=== PATIENT | male | born 1975 | race Caucasian/White ===

== ENCOUNTER 2020-08-01 13:38 | Emergency (ER) | payer OTHER, SELFPAY ==
--- NOTE | ~2020-08-01 | CT_ITS ---
EXAMINATION: CT abdomen pelvis w con DATE: 08/01/2020 16:44 INDICATION: Left lower quadrant abdominal pain. TECHNIQUE: Computed tomography (CT) of the abdomen and pelvis was performed with 100 mL Omnipaque 350 intravenous contrast. Automated exposure control and iterative reconstruction technique were employe d. The dose-length product was 476.58 mGy-cm. COMPARISON: None. FINDINGS: The visualized portions of the lung bases demonstrate mild atelectasis. A calcified right l savanna nodule is consistent with old granulomatous disease. No pleural effusion. The heart size is noreen l. No pericardial effusion. The liver, gallbladder, spleen, pancreas, and adrenal glands are normal. There are cysts in the kidneys measuring up to 16 mm on the left. There is a large volume of stool in the colon. There are no dilated loops of bowel. The appendix is normal. There are no pathologically enlarged lymph nodes. There is no free intraperitoneal fluid. There is lumbar dextroscoliosis and sev ere spondylosis. IMPRESSION: 1. Large volume of stool in the colon. Reviewed, dictated and finalized at location A.
--- NOTE | ~2020-08-01 | US_ITS ---
EXAMINATION: US venous doppler LE RT DATE: 08/01/2020 15:38 INDICATION: Right lower limb swelling. TECHNIQUE: Grayscale ultrasound images without and with compression and Doppler ultrasound images of the right lower extremity veins were obtained. COMPARISON: None. FINDINGS: The visualized portions of right common femoral vein, profunda (deep) femoral vein, femoral vein, pop liteal vein, peroneal veins, posterior tibial veins, and greater saphenous vein outflow are patent. IMPRESSION: 1. No deep venous thrombosis. Reviewed, dictated and finalized at location A.
[2020-08-01 13:43] VITALS: BP 176/121; PULSE 105; RESP 14; TEMP 36.1; O2SAT 100
[2020-08-01 13:44] VITALS: BP 176/121; PULSE 105; RESP 17; TEMP 36.1; O2SAT 100
[2020-08-01 14:01] LABS: Basophils Absolute Auto 0.1 K/mm3 (0.0-0.1); Basophils Percent Auto 0.4 % (0.2-1.2); Eosinophils Percent Auto 0.3 % (0-4.4); Hematocrit 44.4 % (42.0-52.0); Hemoglobin 14.6 g/dL (14.0-18.0); Immature Granulocyte Absolute 0.05 K/mm3 (0.00-0.031); Immature Granulocyte Percent A 0.4 % (0-0.5); Lymphocytes Absolute Auto 1.95 K/mm3 (0.9-3.2); Lymphocytes Percent Auto 14.9 % (18.3-44.2); Mean Corpuscular HGB Conc 32.9 g/dl (32-36); Mean Corpuscular Hemoglobin 28.9 pg (26-34); Mean Corpuscular Volume 87.9 fl (80-100); Mean Platelet Volume 11.2 fl (7.4-10.4); Monocytes Absolute Auto 0.9 K/mm3 (0.1-0.6); Monocytes Percent Auto 6.7 % (2.6-8.5); Neutrophils Absolute Auto 10.1 K/mm3 (1.3-6.7); Neutrophils Percent Auto 77.3 % (45.5-73.1); Platelet Count Result 295 k/mm3 (150-375); Red Blood Count 5.05 M/mm3 (4.6-6.20); Red Cell Distribution Width 15.4 % (11.5-14.5); White Blood Count 13.1 K/mm3 (4.5-10.0)
[2020-08-01 14:11] LABS: Alanine Aminotransferase 29 U/L (4-50); Albumin Level 4.6 g/dL (3.5-5.1); Alkaline Phosphatase 69 U/L (38-126); Anion Gap 11 mmol/L (8-16); Aspartate Amino Transferase 33 U/L (17-59); Bilirubin,Total 0.4 mg/dL (0.2-1.3); Blood Urea Nitrogen 11 mg/dL (9-20); Carbon Dioxide 29 mmol/L (22-30); Chloride 101 mmol/L (98-107); Estimated CRCL calculation 104 ml/min; Estimated Glomerular Filt Rate > 60; Glucose 105 mg/dL (75-110); Lipase 63 U/L (23-300); Potassium 3.8 mmol/L (3.4-5.0); Sodium 141 mmol/L (137-145)
[2020-08-01 15:11] VITALS: BP 178/121; PULSE 82; RESP 14; O2SAT 99
--- NOTE | 2020-08-01 15:20 | ED.GENADULT ---
HPI - General Adult General Chief complaint: Abdominal Pain Stated complaint: Swollen abd Time Seen by Provider: 08/01/20 15:04 Source: patient Mode of arrival: ambulatory Limitations: no limitations History of Present Illness HPI narrative: Patient is a 44-year-old male who presents complaining of of left lower quadrant abdominal pain and right leg pain. He reports right lower extremity pain x3 days. Reports increased redness, warmth and tenderness over the past day. He reports increased swelling today. He denies chest pain or shortness of breath. Patient also reporting left lower quadrant abdominal pain. He states it's swelling . Patient reports tenderness with palpation to left abdomen, no visible deformity, mass or lesion noted at this time. He denies nausea, vomiting, diarrhea or other complaints at this time. Patient has no significant medical history. MD complaint: Abdominal pain, right lower extremity pain Related Data Allergies Allergy/AdvReac Type Severity Reaction Status Date / Time No Known Allergies Allergy Unverified 07/05/18 15:27 Review of Systems Review of Systems: Narrative: CONSTITUTIONAL: Denies fever, chills, or sweats. EYES: Denies visual changes, redness, or discharge. ENT: Denies rhinorrhea, congestion, sore throat, or otalgia. CARDIOVASCULAR: Denies chest pain, palpitations, or edema. RESPIRATORY: Denies cough or dyspnea. GASTROINTESTINAL: Reports abdominal pain, denies nausea, vomiting, or diarrhea. GENITOURINARY: Denies dysuria or hematuria. SKIN: Denies rash or itching. MUSCULOSKELETAL: Reports right lower extremity pain NEUROLOGIC: Denies headache, numbness, dizziness, or weakness. PSYCHIATRIC: Denies anxiety or depression. [facility] Social History Social History (Updated 08/01/20 @ 15:24 by DEION Diaz) Smoking status: Current every day smoker Tobacco type: cigarettes Alcohol intake: current Alcohol use details: Occasional Substance use: current Substance use type: marijuana and crack/cocaine Gender identity (if verbalized by the patient): Male Comments At the time of signature, I have reviewed and agree with nursing past medical, surgical, social, and family history unless otherwise noted. Please see nursing chart for further information. There is no relevant family history pertinent to the presenting complaint. Exam Narrative: Exam Narrative: GENERAL: Well-appearing, well-nourished, and in no acute distress. HEAD: Normocephalic, atraumatic. EYES: EOMI. No redness or drainage. Conjunctiva are normal. ENT: Mucous membranes pink and moist. CHEST: No respiratory distress. Clear to auscultation. HEART: Regular rate and rhythm. No murmur appreciated. Normal peripheral pulses. GI: Soft, nontender without rebound, or guarding. No distention. Bowel sounds normal in all quadrants. MUSCULOSKELETAL: No bony tenderness. EXTREMITIES: Normal range of motion. No edema. SKIN: Warm, erythema, edema and tenderness with palpation to RLE. NEURO: No focal deficits. Alert and oriented x3. Gait steady. PSYCH: Normal affect. No signs of depression or anxiety. Course Vital Signs Vital signs: Vital Signs Temperature 36.1 C L 08/01/20 13:43 Pulse Rate 105 H 08/01/20 13:43 Respiratory Rate 14 08/01/20 13:43 Blood Pressure 176/121 H 08/01/20 13:43 Pulse Oximetry 100 08/01/20 13:43 Temperature 36.1 C L 08/01/20 13:44 Pulse Rate 75 08/01/20 17:42 Respiratory Rate 15 08/01/20 17:42 Blood Pressure 170/121 H 08/01/20 17:42 Pulse Oximetry 99 08/01/20 17:42 Medical Decision Making MDM Narrative Medical decision making narrative: Patient CT is negative for acute processes, discussed with patient that he has a large amount of stool which could be causing his discomfort. Patient's venous ultrasound of right lower extremity is negative for DVT. Most likely cellulitis. Patient to be started on antibiotics at this time. Patient instructed on follo
[2020-08-01 15:24] LABS: Add Urine Microscopic? YES; Appearance Urine Clear (Clear); Bilirubin Urine Negative (Negative); Blood Urine Negative (Negative); Color Urine Yellow (Yellow); Glucose Urine UA Negative (Negative); Hyaline Casts Urine 15-19 /lpf; Ketones Urine Negative (Negative); Leukocyte Esterase Ur Negative LEU/UL (Negative); Mucus Urine Moderate /lpf; Nitrate Urine Negative (Negative); Protein Urine 1+ mg/dL (Negative); RBC Urine 0-2 /hpf (0-2); Specific Grav Ur 1.018 (1.001-1.035); Urobilinogen Urine Negative mg/dL (<2.0); WBC Urine 0-3 /hpf
[2020-08-01 16:21] VITALS: BP 154/111; PULSE 64; RESP 12; O2SAT 99
[2020-08-01 17:42] VITALS: BP 170/121; PULSE 75; RESP 15; O2SAT 99
[2020-08-01] MEDS: KETOROLAC 30 MG/ML VIAL (*BKC) IV PUSH (18:12)
== END 2020-08-01 18:26 | disposition home or self-care (01) ==
PROVIDERS: Emergency Medicine; Emergency Provider Nurse Practitioner
DX: K59.00 Constipation, unspecified (principal); L03.115 Cellulitis of right lower limb; F17.210 Nicotine dependence, cigarettes, uncomplicated
CPT/HCPCS: 36415; 74177; 80053; 81001; 83690; 85025; 93971; 96365; 96375; 99284; J0690; J1885; Q9967

== ENCOUNTER 2020-11-25 09:39 | Emergency (ER) | payer OTHER, SELFPAY ==
[2020-11-25] VITALS (16 sets, daily range): BP systolic 177–186; BP diastolic 108–118; PULSE 52–79; RESP 12–19; TEMP 36.3; O2SAT 97–100
--- NOTE | 2020-11-25 11:01 | PC.NURSE ---
Report given to IAN Glez at this time. She has assumed pt care.
[2020-11-25 11:41] LABS: Basophils Absolute Auto 0.1 K/mm3 (0.0-0.1); Basophils Percent Auto 0.5 % (0.2-1.2); Eosinophils Absolute Auto 0.1 K/mm3 (0-0.3); Eosinophils Percent Auto 1.2 % (0-4.4); Hematocrit 38.9 % (42.0-52.0); Hemoglobin 12.9 g/dL (14.0-18.0); Immature Granulocyte Absolute 0.03 K/mm3 (0.00-0.031); Immature Granulocyte Percent A 0.3 % (0-0.5); Lymphocytes Absolute Auto 1.99 K/mm3 (0.9-3.2); Lymphocytes Percent Auto 19.7 % (18.3-44.2); Mean Corpuscular HGB Conc 33.2 g/dl (32-36); Mean Corpuscular Hemoglobin 30.3 pg (26-34); Mean Corpuscular Volume 91.3 fl (80-100); Mean Platelet Volume 11.3 fl (7.4-10.4); Monocytes Absolute Auto 0.9 K/mm3 (0.1-0.6); Monocytes Percent Auto 8.4 % (2.6-8.5); Neutrophils Absolute Auto 7.1 K/mm3 (1.3-6.7); Neutrophils Percent Auto 69.9 % (45.5-73.1); Platelet Count Result 226 k/mm3 (150-375); Red Blood Count 4.26 M/mm3 (4.6-6.20); White Blood Count 10.1 K/mm3 (4.5-10.0)
[2020-11-25 11:49] LABS: Anion Gap 8 mmol/L (8-16); Blood Urea Nitrogen 15 mg/dL (9-20); Calcium 8.9 mg/dL (8.4-10.2); Carbon Dioxide 29 mmol/L (22-30); Chloride 103 mmol/L (98-107); Estimated CRCL calculation 118 ml/min; Estimated Glomerular Filt Rate > 60; Glucose 103 mg/dL (65-110); Potassium 3.4 mmol/L (3.4-5.0); Sodium 140 mmol/L (137-145)
--- NOTE | 2020-11-25 13:31 | ED.WOUNDLAC ---
HPI - Wound/Laceration General Chief Complaint: Wound/Laceration Stated Complaint: wrist wound/swelling Time Seen by Provider: 11/25/20 11:04 Source: patient Mode of arrival: ambulatory Limitations: no limitations History of Present Illness HPI narrative: 44-year-old with a history of drug abuse here with complaints of pain and swelling to his left hand and wrist area for past few days. Patient denies using IV drugs. Patient states that he used ice 4 days ago , he states he usually snorts. He denies any fever or chills. Onset (ago): day(s) (3) Place: home Associated symptoms: none Related Data Allergies Allergy/AdvReac Type Severity Reaction Status Date / Time No Known Allergies Allergy Unverified 07/05/18 15:27 Review of Systems Review of Systems: All systems reviewed & are unremarkable except as noted in HPI and below Constitutional: Constitutional: Reports no additional constitutional complaints Eyes: Eyes: Reports no additional eye complaints ENT: Reports system reviewed and no additional complaints, except as documented Cardiovascular: Cardiovascular: Reports no additional cardiovascular complaints Respiratory: Respiratory: Reports no additional respiratory complaints Gastrointestinal: Gastrointestinal: Reports no additional gastrointestinal complaints Musculoskeletal: Musculoskeletal: Reports no additional musculoskeletal complaints Integumentary/Breasts: Skin/Breast: Reports as per HPI Neurologic: Reports system reviewed and no additional complaints, except as documented PMFSH Social History Social History Smoking status: Current every day smoker Tobacco type: cigarettes Alcohol intake: current Alcohol use details: Occasional Substance use: current Substance use type: marijuana and crack/cocaine Gender identity (if verbalized by the patient): Male Exam Narrative: GENERAL: Well-appearing, well-nourished, and in no acute distress. HEAD: Normocephalic, atraumatic. EYES: PERRLA and EOMI. NECK: Supple. CHEST: Clear to auscultation. No respiratory distress. HEART: Regular rate and rhythm. No murmur heard. Normal peripheral pulses. ABDOMEN: Soft, nontender, nondistended, normal active bowel sounds. EXTREMITIES: Normal range of motion. No edema. Examination of the left wrist shows mild swelling, erythematous painful range of motion no definitive abscess SKIN: Warm, dry, no rash. NEURO: No focal deficits. Alert and oriented x3. PSYCH: Normal mood and affect. Course Course Emergency Course: Inform patient about his lab work. He is a very hard stick has sclerosed veins. Advised him to take antibiotic as prescribed. Return to the ER if symptoms get worse. Vital Signs Vital signs: Vital Signs Temperature 36.3 C L 11/25/20 09:41 Pulse Rate 79 11/25/20 09:41 Respiratory Rate 19 11/25/20 09:41 Blood Pressure 186/108 H 11/25/20 09:41 Pulse Oximetry 100 11/25/20 09:41 Temperature 36.3 C L 11/25/20 09:41 Pulse Rate 79 11/25/20 09:41 Respiratory Rate 19 11/25/20 09:41 Blood Pressure 186/108 H 11/25/20 09:41 Pulse Oximetry 100 11/25/20 09:41 MDM - Wound/Laceration Lab Data Result diagrams: 11/25/20 11:30 11/25/20 11:30 Labs: Lab Results 11/25/20 11/25/20 Range/Units 11:30 11:30 WBC 10.1 H (4.5-10.0) K/mm3 RBC 4.26 L (4.6-6.20) M/mm3 Hgb 12.9 L (14.0-18.0) g/dL Hct 38.9 L (42.0-52.0) % MCV 91.3 (80-100) fl MCH 30.3 (26-34) pg MCHC 33.2 (32-36) g/dl RDW 14.0 (11.5-14.5) % Plt Count 226 (150-375) k/mm3 MPV 11.3 H (7.4-10.4) fl Immature Gran % (Auto) 0.3 (0-0.5) % Neut % (Auto) 69.9 (45.5-73.1) % Lymph % (Auto) 19.7 (18.3-44.2) % Armstrong % (Auto) 8.4 (2.6-8.5) % Eos % (Auto) 1.2 (0-4.4) % Baso % (Auto) 0.5 (0.2-1.2) % Lymph # (Auto) 1.99 (0.9-3.2) K/mm3 Armstrong # (Auto) 0.9 H (0.1-0.6) K/mm3 Eo
[2020-11-25] MEDS: CLINDAMYCIN 900 MG/D5W 50 ML 900 MG/50 ML PIGGYBACK 50 MG IVPB (13:54)
== END 2020-11-25 15:01 | disposition home or self-care (01) ==
PROVIDERS: Emergency Provider Family Medicine
DX: L03.114 Cellulitis of left upper limb (principal); F17.210 Nicotine dependence, cigarettes, uncomplicated
CPT/HCPCS: 36415; 80048; 85025; 87040; 96365; 99284

== ENCOUNTER 2021-05-05 13:12 | Emergency (ER) | payer OTHER, SELFPAY ==
[2021-05-05 13:15] VITALS: BP 167/89; PULSE 80; RESP 14; TEMP 36.2; O2SAT 100
--- NOTE | 2021-05-05 14:52 | ED.SKABFB ---
HPI - Skin/Abscess/Foreign Bdy General Chief complaint: Allergic Reaction Stated complaint: facial swelling Time Seen by Provider: 05/05/21 14:18 Source: patient Mode of arrival: ambulatory Limitations: no limitations History of Present Illness HPI narrative: This is a 45 year old male who presents for evaluation of left facial swelling. Patient states he had a scratch to his left face. He reports he was painting yesterday and he was told he got paint onto his left cheek. He states paint dried up on his face but he was able wash it off yesterday. He woke up this morning and his left face was swollen. He states the pain was old. He denies nausea, vomiting, fever, chills. He is unsure of his last tetanus. He thinks he may have have messes with a pimple of his left face as well. Related Data Allergies Allergy/AdvReac Type Severity Reaction Status Date / Time No Known Allergies Allergy Verified 05/05/21 14:07 Review of Systems Review of Systems: All systems reviewed & are unremarkable except as noted in HPI and below PMFSH Past Medical History Medical History (Updated 05/05/21 @ 16:37 by Clementine Mcdaniel MD) Patient denies medical problems Social History Social History Smoking status: Current every day smoker Tobacco type: cigarettes Alcohol intake: current Alcohol use details: Occasional Substance use: current Substance use type: marijuana and crack/cocaine Gender identity (if verbalized by the patient): Male Exam Const: General: no acute distress and alert Orientation/consciousness: patient oriented x3 HENMT: Head: normocephalic and atraumatic Ears: TM's normal bilaterally Other: left facial swelling, with left lower periorbital edema. there is hall colored crusting to left cheek, minimal erythema. Resp: Effort & Inspection: normal respiratory effort and no retractions Auscultation: clear to auscultation bilaterally Cardio: Rate: regular rate Rhythm: regular rhythm GI: Auscultation: normal bowel sounds Neuro: General: patient oriented x3, moves all extremities and CN's II-XI intact bilaterally Psych: Mental Status: mental status grossly normal Affect: normal affect Course Reevaluation(s) Reevaluation #1: Patient has improvement in his left facial swelling. THis likely combination of inflammatory and infection. He was given tetanus, antibiotics and steroids. Date: 05/05/21 Time: 16:35 Vital Signs Vital signs: Vital Signs Temperature 97.1 F L 05/05/21 13:15 Pulse Rate 80 05/05/21 13:15 Respiratory Rate 14 05/05/21 13:15 Blood Pressure 167/89 H 05/05/21 13:15 Pulse Oximetry 100 05/05/21 13:15 Temperature 97.1 F L 05/05/21 13:15 Pulse Rate 84 05/05/21 16:49 Respiratory Rate 17 05/05/21 16:49 Blood Pressure 156/78 H 05/05/21 16:49 Pulse Oximetry 99 05/05/21 16:49 Discharge Plan Discharge Clinical Impression: Facial cellulitis Patient Disposition: Home, Self-Care Condition: Stable Instructions: Antibiotic Form, Cellulitis (ED) Additional Instructions: Today you were evaluated for facial swelling that is likely due to infection and inflammation. Take medication as prescribed. REturn to ER if you develop worsening pain, worsening swelling, fever , difficulty seeing or vomiting. Follow up with your primary care provider. Apply clean warm compresses to face to help with swelling. Keep wound clean. Apply ointment and take antibiotics as prescribed. Prescriptions: New mupirocin 2 % ointment 1 applic topical TID Qty: 22 RF: 0 clindamycin HCl 150 mg capsule 450 mg PO Q8H 7 Days Qty: 63 RF: 0 ibuprofen 600 mg tablet 600 mg PO Q6H PRN (Reason: pain) Qty: 14 RF: 0 Follow-up/Referrals: PHYSICIAN,MIXING ENGINEER [Primary Care Provider] - Ana Maria Rodarte DO [Physician] -
[2021-05-05] MEDS: TETANUS,DIPHTHERIA,AC PERTUSSIS ADULT (0.5 ML) BOOSTRIX IM (14:54)
[2021-05-05] MEDS: KETOROLAC 30 MG/ML VIAL (*BKC) IV PUSH (14:55)
[2021-05-05] MEDS: CLINDAMYCIN 600 MG/D5W 50 ML 600 MG/50 ML PIGGYBACK 100 MG IVPB (14:55)
[2021-05-05] MEDS: methylPREDNISolone SOD SUCC 125 MG VIAL IV PUSH (14:56)
[2021-05-05 16:49] VITALS: BP 156/78; PULSE 84; RESP 17; O2SAT 99
== END 2021-05-05 16:52 | disposition home or self-care (01) ==
PROVIDERS: Emergency Provider General Practice
DX: L03.211 Cellulitis of face (principal); Z23 Encounter for immunization; F17.210 Nicotine dependence, cigarettes, uncomplicated
CPT/HCPCS: 90471; 90715; 96365; 96375; 99284; J1885; J2930

== ENCOUNTER 2022-01-06 17:55 | Emergency (ER) | payer OTHER, SELFPAY ==
--- NOTE | 2022-01-06 18:40 | PC.NURSE ---
pt not found when called for triage
[2022-01-06 18:57] VITALS: BP 182/109; PULSE 82; RESP 16; TEMP 36.7; O2SAT 100
--- NOTE | 2022-01-06 23:14 | PC.NURSE ---
Patient called twice for placement in exam room without response. Waiting room checked but patient not located. patient assumed to have left without being seen.
== END 2022-01-06 23:15 | disposition left against medical advice (07) ==
DX: L02.01 Cutaneous abscess of face (principal)
CPT/HCPCS: 99199

== ENCOUNTER 2023-09-02 19:59 | Emergency (ER) | payer OTHER, SELFPAY ==
--- NOTE | ~2023-09-02 | CT_ITS ---
EXAMINATION: CT brain wo con DATE: 09/02/2023 20:58 INDICATION: Head injury. TECHNIQUE: Computed tomography (CT) of the head was performed without intravenous contrast. The mA wa s adjusted according to patient size. Iterative reconstruction technique was employed. The dose-lengt h product was 529.67 mGy-cm. COMPARISON: None FINDINGS: There is no intracranial hemorrhage, acute infarction, or abnormal intracranial mass lesion . The ventricles are normal in size. The paranasal sinuses are clear. There is a small right mastoid effusion. IMPRESSION: 1. Normal brain. Reviewed, dictated and finalized at location E. IMPRESSION: 1. Normal brain.
[2023-09-02 20:00] VITALS: BP 162/108; PULSE 103; RESP 15; TEMP 36.6; O2SAT 99
--- NOTE | 2023-09-02 20:49 | ED.HEATRA ---
HPI - Head Injury General Chief complaint: Head Injury Stated complaint: head injury Time Seen by Provider: 09/02/23 20:33 Source: patient Mode of arrival: ambulatory Limitations: no limitations History of Present Illness HPI Narrative: This is a 47-year-old male that presents to the emergency department after a head injury. Reports he was breaking up concrete and accidentally hit himself in the back of the head with the bar. reports a laceration to his scalp. He did not lose consciousness. He is up-to-date on tetanus. Denies vision changes, vomiting, numbness, weakness. Related Data Allergies Allergy/AdvReac Type Severity Reaction Status Date / Time No Known Allergies Allergy Verified 09/02/23 20:31 Review of Systems Review of Systems: CONSTITUTIONAL: Denies fever EYES: Denies visual changes GASTROINTESTINAL: Denies vomiting NEUROLOGIC: Denies numbness, or weakness. All systems reviewed & are unremarkable except as noted in HPI and below PMFSH Past Medical History Medical History (Updated 09/02/23 @ 22:19 by Kassi Frances PA-C) Patient denies medical problems Social History Social History Smoking status: Current every day smoker Tobacco type: cigarettes Alcohol intake: current Alcohol use details: Occasional Substance use: current Substance use type: marijuana and crack/cocaine Gender identity (if verbalized by the patient): Male Exam Narrative: GENERAL: Well-appearing, well-nourished, and in no acute distress. HEAD: Normocephalic. 3cm linear laceration into subcutaneous tissue to the scalp EYES: PERRLA and EOMI. ENT: Nares clear, no rhinorrhea or epistaxis. Mucous membranes moist. Oropharynx without tonsillar hypertrophy exudate or other lesions. Bilateral TMs pearly bland non-bulging NECK: Supple. No adenopathy or masses. No midline spinal tenderness CHEST: Clear to auscultation. No respiratory distress. No wheezes rales or rhonchi HEART: Regular rate and rhythm. No murmur heard. Normal peripheral pulses. EXTREMITIES: Normal range of motion. No edema. SKIN: Warm, dry, no rash. NEURO: No focal deficits. Alert and oriented x3. CN II-XII grossly intact PSYCH: Normal mood and affect Course Course Emergency Course: Patient updated on his workup and agrees with plan of care Vital Signs Vital signs: Vital Signs Temperature 97.9 F 09/02/23 20:00 Pulse Rate 103 H 09/02/23 20:00 Respiratory Rate 15 09/02/23 20:00 Blood Pressure 162/108 H 09/02/23 20:00 Pulse Oximetry 99 09/02/23 20:00 Oxygen Delivery Room Air 09/02/23 20:00 Temperature 97.9 F 09/02/23 20:00 Pulse Rate 103 H 09/02/23 20:00 Respiratory Rate 15 09/02/23 20:00 Blood Pressure 162/108 H 09/02/23 20:00 Pulse Oximetry 99 09/02/23 20:00 Oxygen Delivery Room Air 09/02/23 20:00 Procedures Laceration Laceration 1: Date: 09/02/23 Time: 22:20 Site: scalp Size (cm): 3 Description: linear Depth: simple, single layer Local Anesthetic: lidocaine 1% and with epi Amount of anesthesia used (mL): 3 Pre-repair: irrigated ====== Skin Level ====== Skin layer closed with: jeff Number of sutures: 4 ====== Subcutaneous Layer ====== ====== Muscle Layer ====== ====== Tendon Layer ====== MDM - Head Injury MDM Narrative Medical decision making narrative: Patient presents to the ER for head injury today with laceration to the scalp. patient is neurologically intact. Reports he is up-to-date on tetanus vaccination. His wound was irrigated and closed with jeff. CT brain without acute findings. He was educated on further wound care. He is to follow up with primary provider. He was given warnings to return to the ER Differential Diagnosis Differential diagnosis: Likely concussion without loss of consciousness, closed head injury, subdu
== END 2023-09-02 22:30 | disposition home or self-care (01) ==
PROVIDERS: Emergency Provider Physician Assistant
DX: S01.01XA Laceration without foreign body of scalp, initial encounter (principal); F17.210 Nicotine dependence, cigarettes, uncomplicated; W22.8XXA Striking against or struck by other objects, initial encounter
CPT/HCPCS: 12002; 70450; 99284